=== PATIENT | female | born 1965 | race Caucasian/White ===

== ENCOUNTER 2018-10-14 07:03 | Inpatient (IN) | payer BC ==
--- NOTE | 2018-10-14 07:33 | ED ---
General Adult HPI - General Chief complaint: Arrhythmia/Palpitations Stated complaint: Heart Monit. Alert To Be Seen Time Seen by Provider: 10/14/18 07:10 Source: patient, RN notes reviewed Mode of arrival: ambulatory Limitations: no limitations - History of Present Illness Initial comments: This a 53-year-old female presents emergency Department because she had received a call that stated the monitor she was wearing show something she should go to the emergency department. Patient states she received a call at 3:00 in the morning and then 5:30 this morning. Patient states both times received a phone call she was sleeping. Patient denies any palpitations. Patient denies chest pain patient denies any difficulty breathing first breath per patient denies any recent fever chills or cough. Patient states she was originally put on the monitor because she had some palpitations and they tried to figure out why she is having palpitations. Patient states she states at her baseline currently and has no complaints and she has not had any sensation of palpitations since she's had the monitor. - Related Data Home Medications Medication Instructions Recorded Confirmed Cholecalciferol [Vitamin D3] 3,000 unit PO DAILY 10/14/18 10/14/18 Allergies Allergy/AdvReac Type Severity Reaction Status Date / Time No Known Allergies Allergy Verified 10/14/18 07:12 Review of Systems ROS Statement: Those systems with pertinent positive or pertinent negative responses have been documented in the HPI. ROS Other: All systems not noted in ROS Statement are negative. Past Medical History Past Medical History: No Reported History History of Any Multi-Drug Resistant Organisms: None Reported Past Surgical History: Tonsillectomy Additional Past Surgical History / Comment(s): laprascopy Past Psychological History: No Psychological Hx Reported Smoking Status: Never smoker Past Alcohol Use History: None Reported Past Drug Use History: None Reported General Exam - General Exam Comments Initial Comments: GENERAL: Patient is well-developed and well-nourished. Patient is nontoxic and well- hydrated and is in no acute distress. ENT: Neck is soft and supple. No significant lymphadenopathy is noted. Oropharynx is clear. Moist mucous membranes. Neck has full range of motion without eliciting any pain. EYES: The sclera were anicteric and conjunctiva were pink and moist. Extraocular movements were intact and pupils were equal round and reactive to light. Eyelids were unremarkable. PULMONARY: Unlabored respirations. Good breath sounds bilaterally. No audible rales rhonchi or wheezing was noted. CARDIOVASCULAR: There is a regular rate and rhythm without any murmurs gallops or rubs. ABDOMEN: Soft and nontender with normal bowel sounds. SKIN: Skin is clear with no lesions or rashes and otherwise unremarkable. NEUROLOGIC: Patient is alert and oriented x3. Cranial nerves II through XII are grossly intact. Motor and sensory are also intact. Normal speech, volume and content. Symmetrical smile. MUSCULOSKELETAL: Normal extremities with adequate strength and full range of motion. No lower extremity swelling or edema. No calf tenderness. LYMPHATICS: No significant lymphadenopathy is noted PSYCHIATRIC: Normal psychiatric evaluation. Limitations: no limitations Course Vital Signs 10/14/18 10/14/18 10/14/18 07:09 07:30 08:00 Temperature 98.2 F Pulse Rate 85 86 77 Respiratory 18 12 18 Rate Blood Pressure 146/85 135/100 155/105 O2 Sat by Pulse 100 98 98 Oximetry 10/14/18 09:00 Temperature Pulse Rate 80 Respiratory 20 Rate Blood Pressure 135/85 O2 Sat by Pulse 98 Oximetry Medical Decision Making - Medical Decision Making EKG shows normal sinus rhythm at 70 bpm WI interval is 132 QRS is 90 QT interval 356 QTC is 405. Patient's EKG shows no ST segment elevation or depression. We called the monitor company and they sent us a rhythm strip which showed the patient going into a sustained V. tach. Patient has not been in V. tach while in the emergency department. I spoke with Dr. Chang Downing agreed that we should admit the patient. I spoke with some physicians agreed to admit the patient wrote admitting orders. - Lab Data Result diagrams: 10/14/18 07:40 10/14/18 07:40 Lab Results 10/14/18 10/14/18 10/14/18 Range/Units 07:40 07:40 07:40 WBC 6.3 (3.8-10.6) k/uL RBC 4.94 (3.80-5.40) m/uL Hgb 14.0 (11.4-16.0) gm/dL Hct 43.0 (34.0-46.0) % MCV 87.1 (80.0-100.0) fL MCH 28.5 (25.0-35.0) pg MCHC 32.7 (31.0-37.0) g/dL RDW 13.6 (11.5-15.5) % Plt Count 156 (150-450) k/uL Neutrophils % 84 % Lymphocytes % 12 % Monocytes % 2 % Eosinophils % 0 % Basophils % 0 % Neutrophils # 5.3 (1.3-7.7) k/uL Lymphocytes # 0.7 L (1.0-4.8) k/uL Monocytes # 0.2 (0-1.0) k/uL Eosinophils # 0.0 (0-0.7) k/uL Basophils # 0.0 (0-0.2) k/uL PT 10.0 (9.0-12.0) sec INR 0.9 (<1.2) APTT 24.1 (22.0-30.0) sec Sodium 142 (137-145) mmol/L Potassium 4.3 (3.5-5.1) mmol/L Chloride 107 (98-107) mmol/L Carbon Dioxide 25 (22-30) mmol/L Anion Gap 10 mmol/L BUN 17 (7-17) mg/dL Creatinine 0.47 L (0.52-1.04) mg/dL Est GFR (CKD-EPI)AfAm >90 (>60 ml/min/1.73 sqM) Est GFR (CKD-EPI)NonAf >90 (>60 ml/min/1.73 sqM) Glucose 116 H (74-99) mg/dL Calcium 10.5 H (8.4-10.2) mg/dL Magnesium 2.0 (1.6-2.3) mg/dL Total Bilirubin 0.6 (0.2-1.3) mg/dL AST 37 H (14-36) U/L ALT 37 (9-52) U/L Alkaline Phosphatase 82 (38-126) U/L Troponin I (0.000-0.034) ng/mL Total Protein 8.0 (6.3-8.2) g/dL Albumin 5.0 (3.5-5.0) g/dL 10/14/18 Range/Units 07:40 WBC (3.8-10.6) k/uL RBC (3.80-5.40) m/uL Hgb (11.4-16.0) gm/dL Hct (34.0-46.0) % MCV (80.0-100.0) fL MCH (25.0-35.0) pg MCHC (31.0-37.0) g/dL RDW (11.5-15.5) % Plt Count (150-450) k/uL Neutrophils % % Lymphocytes % % Monocytes % % Eosinophils % % Basophils % % Neutrophils # (1.3-7.7) k/uL Lymphocytes # (1.0-4.8) k/uL Monocytes # (0-1.0) k/uL Eosinophils # (0-0.7) k/uL Basophils # (0-0.2) k/uL PT (9.0-12.0) sec INR (<1.2) APTT (22.0-30.0) sec Sodium (137-145) mmol/L Potassium (3.5-5.1) mmol/L Chloride (98-107) mmol/L Carbon Dioxide (22-30) mmol/L Anion Gap mmol/L BUN (7-17) mg/dL Creatinine (0.52-1.04) mg/dL Est GFR (CKD-EPI)AfAm (>60 ml/min/1.73 sqM) Est GFR (CKD-EPI)NonAf (>60 ml/min/1.73 sqM) Glucose (74-99) mg/dL Calcium (8.4-10.2) mg/dL Magnesium (1.6-2.3) mg/dL Total Bilirubin (0.2-1.3) mg/dL AST (14-36) U/L ALT (9-52) U/L Alkaline Phosphatase (38-126) U/L Troponin I <0.012 (0.000-0.034) ng/mL Total Protein (6.3-8.2) g/dL Albumin (3.5-5.0) g/dL Disposition Clinical Impression: Sustained ventricular tachycardia Disposition: ADMITTED IP TO THIS HOSP Referrals: None,Stated [Primary Care Provider] - 1-2 days Time of Disposition: 09:11
[2018-10-14 08:04] LABS: Basophils % (A) 0 %; Eosinophils % (A) 0 %; INR 0.9 (<1.2); Lymphocytes # (A) 0.7 k/uL (1.0-4.8); Lymphocytes % (A) 12 %; MCH 28.5 pg (25.0-35.0); MCHC 32.7 g/dL (31.0-37.0); MCV 87.1 fL (80.0-100.0); Mean Platelet Volume 8.9; Monocytes # (A) 0.2 k/uL (0-1.0); Monocytes % (A) 2 %; Neutrophils # (A) 5.3 k/uL (1.3-7.7); Neutrophils % (A) 84 %; Partial Thromboplastin Time 24.1 sec (22.0-30.0); Platelet Count 156 k/uL (150-450); RBC 4.94 m/uL (3.80-5.40); RDW 13.6 % (11.5-15.5); WBC 6.3 k/uL (3.8-10.6)
[2018-10-14 08:12] LABS: ALT 37 U/L (9-52); AST 37 U/L (14-36); Alkaline Phosphatase 82 U/L (38-126); Anion Gap 10 mmol/L; Blood Urea Nitrogen 17 mg/dL (7-17); Calcium 10.5 mg/dL (8.4-10.2); Carbon Dioxide 25 mmol/L (22-30); Chloride 107 mmol/L (98-107); Glucose 116 mg/dL (74-99); Potassium 4.3 mmol/L (3.5-5.1); Sodium 142 mmol/L (137-145); Total Bilirubin 0.6 mg/dL (0.2-1.3)
--- NOTE | 2018-10-14 09:00 | XR ---
EXAMINATION TYPE: XR chest 2V DATE OF EXAM: 10/14/2018 COMPARISON: 08/27/2010 TECHNIQUE: PA and lateral views submitted. HISTORY: Chest pain FINDINGS: Linear retrocardiac density noted on the left. No overt failure thorax. No pleural effusion. Hypertro phic and degenerative changes spine. IMPRESSION: 1. Left basilar atelectasis favored over infiltrate.
[2018-10-14] MEDS ORDERED: NITROGLYCERIN SL TABS 0.4 MG TAB SUBLINGUAL PRN (09:12)
[2018-10-14 09:38] LABS: T4, Free (Free Thyroxine) 1.32 ng/dL (0.78-2.19)
--- NOTE | 2018-10-14 10:25 | P.CRDCN ---
History of Present Illness Consult date: 10/14/18 Chief complaint: Palpitation History of present illness: This is a pleasant 53-year-old female patient who I follow in the office as an outpatient with no significant past medical history was asked to present to the emergency room because of abnormal findings on event monitor she has been waiting for the last 3 weeks. The patient was seen in the office about 3 weeks ago for further evaluation of an episode of palpitation. She was in her usual state of health until about a week before she was seen in the office where she was sitting at home and suddenly she developed an episode of heart racing without any dizziness or lightheadedness or syncope. She didn't have any symptoms of chest pain or chest discomfort. She did not have any further episode of heart racing beside that first one. I that point, I did advise the patient to wear an event monitor and also obtain an echocardiogram was Doppler. This time, she was waiting the event monitor and at 2:00 after midnight, the patient was called by the event monitor company to go to the emergency room because she did have a 25 beats of wide complex tachycardia represents ventricular tachycardia with differential diagnosis of SVT with aberrancy. The patient was completely asymptomatic. As a matter of fact through the time she was wearing the event monitor she did not have any episode of heart racing or fluttering, dizziness, chest pain or chest discomfort, or shortness of breath. She is in process to be ruled out for acute coronary event. The blood work overall came in to be unremarkable including Electrolytes and including her TSH and free T4. Please note that the patient does have very significant family history of coronary artery disease with her mother. Past Medical History Past Medical History: No Reported History Additional Past Medical History / Comment(s): 2 years ago (2017) pt states she had chest fluttering and had cardiac workup-nothing found, lately L bicep pain up into shoulder-worse with certain positions, stress incontinence. History of Any Multi-Drug Resistant Organisms: None Reported Past Surgical History: Tonsillectomy Additional Past Surgical History / Comment(s): laprascopic surgery for e ndometriosis. Past Anesthesia/Blood Transfusion Reactions: No Reported Reaction Past Psychological History: No Psychological Hx Reported Additional Psychological History / Comment(s): Pt resides with her spouse. She is independent. Smoking Status: Never smoker Past Alcohol Use History: None Reported Past Drug Use History: None Reported - Past Family History Mother Family Medical History: Coronary Artery Disease (CAD) Additional Family Medical History / Comment(s): Mother had 2 vessel CABG at the age of 63 yrs. She also had PCI/stent at the age of 76yrs. Pt's maternal aunt had CABG and her 2 maternal uncles had CVA and HTN elevated cholesterol. Father History Unknown: Yes Additional Family Medical History / Comment(s): Father in a plane accident. Medications and Allergies Home Medications Medication Instructions Recorded Confirmed Type Cholecalciferol [Vitamin D3] 3,000 unit PO DAILY 10/14/18 10/14/18 History Allergies Allergy/AdvReac Type Severity Reaction Status Date / Time No Known Allergies Allergy Verified 10/14/18 07:12 Physical Exam Vitals: Vital Signs Temp Pulse Resp BP Pulse Ox 10/14/18 10:07 98.8 F 105 H 18 134/83 98 10/14/18 09:00 80 20 135/85 98 10/14/18 08:00 77 18 155/105 98 10/14/18 07:30 86 12 135/100 98 10/14/18 07:09 98.2 F 85 18 146/85 100 Intake and Output 10/13/18 10/14/18 10/14/18 22:59 06:59 14:59 Other: Weight 70.76 kg - Constitutional General appearance: no acute distress - Respiratory Respiratory: bilateral: CTA - Cardiovascular Rhythm: regular Heart sounds: normal: S1, S2 Results 10/14/18 07:40 10/14/18 07:40 Cardiac Enzymes 10/14/18 10/14/18 Range/Units 07:40 07:40 AST 37 H (14-36) U/L Troponin I <0.012 (0.000-0.034) ng/mL Coagulation 10/14/18 Range/Units 07:40 PT 10.0 (9.0-12.0) sec APTT 24.1 (22.0-30.0) sec CBC 10/14/18 Range/Units 07:40 WBC 6.3 (3.8-10.6) k/uL RBC 4.94 (3.80-5.40) m/uL Hgb 14.0 (11.4-16.0) gm/dL Hct 43.0 (34.0-46.0) % Plt Count 156 (150-450) k/uL Comprehensive Metabolic Panel 10/14/18 Range/Units 07:40 Sodium 142 (137-145) mmol/L Potassium 4.3 (3.5-5.1) mmol/L Chloride 107 (98-107) mmol/L Carbon Dioxide 25 (22-30) mmol/L BUN 17 (7-17) mg/dL Creatinine 0.47 L (0.52-1.04) mg/dL Glucose 116 H (74-99) mg/dL Calcium 10.5 H (8.4-10.2) mg/dL AST 37 H (14-36) U/L ALT 37 (9-52) U/L Alkaline Phosphatase 82 (38-126) U/L Total Protein 8.0 (6.3-8.2) g/dL Albumin 5.0 (3.5-5.0) g/dL Current Medications Generic Name Dose Route Start Last Admin Trade Name Freq PRN Reason Stop Dose Admin Aspirin 325 mg 10/15/18 09:00 Aspirin PO DAILY LEXIE Metoprolol Tartrate 25 mg 10/14/18 21:00 Lopressor PO BID LEXIE Nitroglycerin 0.4 mg 10/14/18 09:12 Nitrostat SUBLINGUAL Q5M PRN Chest Pain Intake and Output 10/13/18 10/14/18 10/14/18 22:59 06:59 14:59 Other: Weight 70.76 kg Patient Weight 10/15/18 06:59 Weight 70.76 kg 10/14/18 07:40 10/14/18 07:40 Assessment and Plan Assessment: Assessment #1 cardiac arrhythmia in the term of nonsustained V. tach with differential diagnosis of SVT with appearance he, including atrial flutter #2 significant family history of coronary artery disease Plan #1 start the patient on beta kassie with metoprolol #2 obtain an echocardiogram was Doppler #3 severe CAD to be ruled out #4 follow-up with the patient Thank you for allowing us participate in her care
[2018-10-14] MEDS: ASPIRIN 325 MG TAB PO SCH (10:48)
[2018-10-14] MEDS ORDERED: VERAPAMIL 2.5 MG/ML 2 ML AMP ONE (11:22)
[2018-10-14] MEDS ORDERED: LIDOCAINE 1% INJ 10MG/ML (20 ML MDV) ONE (11:22)
[2018-10-14] MEDS ORDERED: fentaNYL (PF) 50 MCG/ML 2 ML AMP ONE (11:37)
[2018-10-14] MEDS ORDERED: MIDAZOLAM (PF) 2 MG/2 ML VIAL IVP ONE ×2 (11:37→11:39)
[2018-10-14] MEDS ORDERED: LIDOCAINE 1% INJ 10MG/ML (20 ML MDV) SQ ONE (11:39)
[2018-10-14] MEDS ORDERED: fentaNYL (PF) 50 MCG/ML 2 ML AMP IVP ONE (11:39)
[2018-10-14] MEDS ORDERED: VERAPAMIL SYRINGE (5 MG/10 ML) IV ONE (11:43)
[2018-10-14] MEDS ORDERED: HEPARIN SODIUM 1,000 UN/ML (10ML VL) IV ONE (11:44)
[2018-10-14] MEDS ORDERED: IV FLUID CONTINUATION 1,000 ML IV ONE (11:45)
[2018-10-14] MEDS ORDERED: IOPAMIDOL-370 125ML BTL INJ ONE (11:49)
[2018-10-14] MEDS ORDERED: RX INFO: IV CONTRAST WAS GIVEN 1 EACH MISC MISCELLANE PRN (11:52)
[2018-10-14] MEDS ORDERED: SODIUM CHLORIDE 0.9% 1,000 ML IV SCH (12:00)
--- NOTE | 2018-10-14 12:14 | CC ---
CARDIAC CATHETERIZATION REPORT DATE OF SERVICE: 10/14/2018. PERFORMING PHYSICIAN: Peter Downing MD, [employer] PROCEDURE PERFORMED: 1. Selective right and left coronary angiogram. 2. Left heart catheterization. INDICATION: This is a pleasant 53-year-old female patient who presented to the hospital with heart racing and she was found to be in V tach. She was converted to normal sinus mechanism. COMPLICATION: None. LEVEL OF SEDATION: Moderate with sedation length of 12 minutes. PROCEDURE DESCRIPTION: After obtaining an informed consent, the patient was brought to cardiac laboratory animal facility supervisor. The right radial artery was cannulated using micropuncture technique and a micropuncture wire passed easily. Then I placed a 6-Sammarinese sheath in the right radial artery. After that, I gave the patient 2 mg of verapamil IA and 7,000 units of heparin IV. I did selective right and left coronary angiogram with the JR4 and JL3.5 catheters. Left heart catheterization was performed using 5-Sammarinese pigtail catheter. The procedure was completed without any complication. SELECTIVE CORONARY ANGIOGRAM: 1. The right coronary artery is a large caliber vessel and it is a dominant vessel and appears to be angiographically normal. 2. The left main is angiographically normal. It bifurcates into the circumflex and left anterior descending artery. 3. Left circumflex is a large caliber vessel. It is a nondominant vessel. The left circumflex is angiographically normal. It gives rise into first and second obtuse marginal branches, both appeared to be angiographically normal. 4. The LAD, the proximal LAD is normal and gives rise into a large diagonal branch which seems to be normal. The mid and distal LAD are normal. HEMODYNAMICS: The left ventricular end diastolic pressure was 10 mmHg without gradient across the aortic valve. CONCLUSION: 1. Normal coronary angiogram. 2. Normal left ventricular end-diastolic pressure. POSTPROCEDURE MANAGEMENT: 1. Consult Dr. Kay for EP study and possible ablation. 2. Follow up with the patient. MMODL / IJN: [id number] /
[2018-10-14] MEDS ORDERED: ALPRAZolam 0.25 MG TAB PO PRN (12:47)
--- NOTE | 2018-10-14 12:48 | P.HPIM ---
History of Present Illness H&P Date: 10/14/18 Chief Complaint: palpitations 53-year-old female with PMH of anxiety presents to the ED after she received a call stating that the compliance monitor was showing abnormal rhythm function and was told to come to the ED for evaluation. event monitor showed 25 beats of wide-complex tachycardia, ventricular tachycardia or SVT with aberrancy. Patient states that she was sleeping at this time and had no complaints. Of note, patient reports being evaluated by cardiology 6 weeks prior for an episode of palpitations that started while watching TV and resolved on its own. Patient reports suffering from cardiac flutter 2 years ago and no cause was found after evaluation. Patient also reports undergoing echocardiogram at the cardiology clinic. Patient states that she is an anxious person. She denies any caffeine or alcohol intake. She denies any smoking or illicit drug u se.patient denies any headache, dizziness, lower extremity edema, nausea, vomiting, fever, chills, cough, chest pain, shortness of breath, palpitations, changes in urination or bowel habits. She denies any numbness/weakness/tingling of the extremities. In the ED, CBC and PT/INR panel was negative. CMP showed a glucose of 116 and calcium of 10.5. Troponin was less than 0.012 with EKG showing normal sinus rhythm with sinus arrhythmia. Chest x-ray shows left basilar atelectasis. Review of Systems General: [no fever/chills], [no rigors], [no weight loss/weight gain], [no unusual fatigue] Eyes: [no noticeable visual changes], [no loss of vision] ENT: [no rhinorrhea], [no congestion], [no sore throat] Cardiovascular: [no chest pain], [no palpitations], [no preyncope/syncope], [no edema] Pulmonary: [no shortness of breath], [no wheezing], [no cough] Abdominal: [no abdominal pain], [no constipation], [no diarrhea], [no vomiting], [no nausea] Genitourinary: [no dysuria], [no urinary frequency], [no unusual discharge/odor] Neuro: [no unusual paresthesias], [no unusual paresis/paralysis], [no headache] Dermatologic: [no unusual rashes], [no unusual lesions], [no unusual changes in nails] Hematologic: [no hemoptysis], [no hematuria], [no melena/hematochezia] Psychiatric: [no changes in mood or behaviors], [no changes in sleep pattern] Past Medical History Past Medical History: No Reported History Additional Past Medical History / Comment(s): 2 years ago (2017) pt states she had chest fluttering and had cardiac workup-nothing found, lately L bicep pain up into shoulder-worse with certain positions, stress incontinence. History of Any Multi-Drug Resistant Organisms: None Reported Past Surgical History: Tonsillectomy Additional Past Surgical History / Comment(s): laprascopic surgery for endometriosis. Past Anesthesia/Blood Transfusion Reactions: No Reported Reaction Past Psychological History: No Psychological Hx Reported Additional Psychological History / Comment(s): Pt resides with her spouse. She is independent. Smoking Status: Never smoker Past Alcohol Use History: None Reported Past Drug Use History: None Reported - Past Family History Mother Family Medical History: Coronary Artery Disease (CAD) Additional Family Medical History / Comment(s): Mother had 2 vessel CABG at the age of 63 yrs. She also had PCI/stent at the age of 76yrs. Pt's maternal aunt had CABG and her 2 maternal uncles had CVA and HTN elevated cholesterol. Father History Unknown: Yes Additional Family Medical History / Comment(s): Father in a plane accident. Medications and Allergies Home Medications Medication Instructions Recorded Confirmed Type Cholecalciferol [Vitamin D3] 3,000 unit PO DAILY 10/14/18 10/14/18 History Allergies Allergy/AdvReac Type Severity Reaction Status Date / Time No Known Allergies Allergy Verified 10/14/18 07:12 Physical Exam Vitals: Vital Signs Temp Pulse Pulse Resp BP BP Pulse Ox 10/14/18 12:22 85 18 121/71 98 10/14/18 12:07 98.4 F 74 18 118/83 99 10/14/18 11:46 98.4 F 76 18 160/87 96 10/14/18 10:07 98.8 F 105 H 18 134/83 98 10/14/18 09:00 80 20 135/85 98 10/14/18 08:00 77 18 155/105 98 10/14/18 07:30 86 12 135/100 98 10/14/18 07:09 98.2 F 85 18 146/85 100 Intake and Output 10/13/18 10/14/18 10/14/18 22:59 06:59 14:59 Intake Total 100 Balance 100 Intake: IV 100 Other: Weight 71.2 kg General: [non toxic], [no distress], [appears at stated age] Derm: [warm], [dry] Head: [atraumatic], [normocephalic], [symmetric] Eyes: [EOMI], [no lid lag], [anicteric sclera] Mouth: [no lip lesion], [mucus membranes moist] Cardiovascular: [S1S2 reg], [no murmur], [positive posterior tibial pulse bilateral], Lungs: [CTA bilateral], [no rhonchi, no rales] , [no accessory muscle use] Abdominal: [soft], [ nontender to palpation], [no guarding], [no appreciable organomegaly] Ext: [no gross muscle atrophy], [no edema], [no contractures] Neuro: [ CN II-XI grossly intact], [no focal neuro deficits] Psych: [Alert], [oriented], [appropriate affect] Results CBC & Chem 7: 10/14/18 07:40 10/14/18 07:40 Labs: Abnormal Lab Results - Last 24 Hours (Table) 10/14/18 10/14/18 Range/Units 07:40 07:40 Lymphocytes # 0.7 L (1.0-4.8) k/uL Creatinine 0.47 L (0.52-1.04) mg/dL Glucose 116 H (74-99) mg/dL Calcium 10.5 H (8.4-10.2) mg/dL AST 37 H (14-36) U/L Thrombosis Risk Factor Assmnt - Choose All That Apply Any of the Below Risk Factors Present?: Yes Each Factor Represents 1 point: Age 41-60 years Other Risk Factors: No Other congenital or acquired thrombophilia - If yes, enter type in comment: No Thrombosis Risk Factor Assessment Total Risk Factor Score: 1 Thrombosis Risk Factor Assessment Level: Low Risk Assessment and Plan Assessment: Assessment and Plan Abnormal event monitor with history of palpitations Anxiety Elevated AST Event monitor showing 25 beats of wide-complex tachycardia, ventricular tachy cardia versus SVT with aberrancy. Troponin less than 0.012, with EKG showing normal sinus rhythm. Cardiac catheterization within normal limits. TSH and free T4 is within normal limits. Magnesium and potassium is within normal limits. Plan: Follow echocardiogram. Follow electrophysiology consultation. Continue metoprolol and aspirin. Telemetry monitoring. Xanax as needed. AST 37. Possibly secondary to fatty liver. Follow lipid panel. DVT prophylaxis: [SCD boots] Discussed with: [Patient and family] Anticipated discharge: [1-2 days] Anticipated discharge place: [home] A total of [30] minutes was spent on the care of this complex patient more than 50% of the time was spent in counseling and care coordination. Patient states that she would like to make her Niranjan decision-maker in the case that she can make decisions for himself. Patient reiterates that she would like to remain full code.
[2018-10-14] MEDS: METOPROLOL TARTRATE 25 MG TAB PO SCH (19:15)
[2018-10-15 00:40] LABS: Cholesterol 140 mg/dL (<200); HDL Cholesterol 57 mg/dL (40-60); LDL Cholesterol,Calculated 70 mg/dL (0-99); Triglycerides 65 mg/dL (<150)
[2018-10-15] MEDS ORDERED: ASPIRIN 325 MG TAB PO SCH (09:00)
[2018-10-15] MEDS: METOPROLOL TARTRATE 25 MG TAB PO SCH ×2 (09:04→18:27)
[2018-10-15] MEDS: ASPIRIN 325 MG TAB PO SCH (09:05)
--- NOTE | 2018-10-15 11:18 | P.PN ---
Subjective Progress Note Date: 10/15/18 Principal diagnosis: Palpitations Patient was seen and examined. No acute events overnight. Patient reports one episode of palpitations yesterday. No reports of telemetry events. Patient denies any chest pain, shortness of breath or palpitations at this time. No nausea or vomiting. No fever or chills. Objective - Vital Signs Vital signs: Vital Signs Temp 98.3 F 10/15/18 08:00 Pulse 69 10/15/18 08:00 Resp 18 10/15/18 08:00 BP 110/71 10/15/18 08:00 Pulse Ox 99 10/15/18 09:12 Intake & Output 10/14/18 10/15/18 10/15/18 18:59 06:59 18:59 Intake Total 460 600 240 Balance 460 600 240 Weight 71.2 kg 70.2 kg Intake: IV 100 Intake, IV Titration 600 Amount Sodium Chloride 0.9% 1, 600 000 ml @ 75 mls/hr IV . [id number] LEXIE Rx#:[id number] Oral 360 240 Other: Voiding Method Toilet # Voids 0 1 - Exam General: [non toxic], [no distress], [appears at stated age] Derm: [warm], [dry] Head: [atraumatic], [normocephalic], [symmetric] Eyes: [EOMI], [no lid lag], [anicteric sclera] Mouth: [no lip lesion], [mucus membranes moist] Cardiovascular: [S1S2 reg], [no murmur], [positive posterior tibial pulse bilateral], Lungs: [CTA bilateral], [no rhonchi, no rales] , [no accessory muscle use] Abdominal: [soft], [ nontender to palpation], [no guarding], [no appreciable organomegaly] Ext: [no gross muscle atrophy], [no edema], [no contractures] Neuro: [ CN II-XI grossly intact], [no focal neuro deficits] Psych: [Alert], [oriented], [appropriate affect] - Labs CBC & Chem 7: 10/14/18 07:40 10/14/18 07:40 Assessment and Plan Assessment: Assessment and Plan Abnormal event monitor with history of palpitations Anxiety Elevated AST Event monitor showing 25 beats of wide-complex tachycardia, ventricular tachycardia versus SVT with aberrancy. Troponin less than 0.012, with EKG showing normal sinus rhythm. Cardiac catheterization within normal limits. TSH and free T4 is within normal limits. Magnesium and potassium is within normal limits. Plan: Follow echocardiogram. Follow electrophysiology consultation. Continue metoprolol and aspirin. Telemetry monitoring. Xanax as needed. AST 37. Possibly secondary to fatty liver. Lipid panel within normal limits. Pending electrophysiology consultation.
--- NOTE | 2018-10-15 15:15 | P.PN ---
Subjective Progress Note Date: 10/15/18 This is a 53-year-old female who was seen in consultation by Dr. Schwartz, he also follows with her in the office. She had been in the office approximately 3 weeks ago for evaluation of an episode of palpitations. She was advised to wear a monitor in the office, at 2:00 in the morning it was noted that the patient had a 25 run of a wide complex tachycardia and was advised to come to the emergency room. Dr. Schwartz did perform a cardiac catheterization that did not reveal any significant obstructive coronary artery disease. Consultation was requested with Dr. Kay who seen and evaluated the patient today. She is currently on beta kassie, she'll be scheduled tomorrow to undergo a regular stress test. Overall today she feels well, denies any palpitations, no chest discomfort. Breathing is stable. She had 1 run of a sinus tachycardia around 7 PM last evening but other than that no arrhythmias. Objective - Vital Signs Vital signs: Vital Signs Temp 98.1 F 10/15/18 12:00 Pulse 64 10/15/18 12:00 Resp 18 10/15/18 12:00 BP 138/84 10/15/18 12:00 Pulse Ox 96 10/15/18 12:00 Intake & Output 10/14/18 10/15/18 10/15/18 18:59 06:59 18:59 Intake Total 460 600 480 Output Total 400 Balance 460 600 80 Weight 71.2 kg 70.2 kg Intake: IV 100 Intake, IV Titration 600 Amount Sodium Chloride 0.9% 1, 600 000 ml @ 75 mls/hr IV . [id number] [facility] Rx#:[id number] Oral 360 480 Output: Urine 400 Other: Voiding Method Toilet # Voids 0 1 - Exam PHYSICAL EXAMINATION: GENERAL: 53-year-old female in no acute distress at the time of my examination HEENT: Head is atraumatic, normocephalic. Pupils equal, round. Sclera anicteric. Conjunctiva are clear. Mucous membranes of the mouth are moist. Neck is supple. There is no elevated jugular venous pressure. No carotid bruit is heard. HEART EXAMINATION: Heart S1, S2 normal. No murmur or gallop heard. CHEST EXAMINATION: Lungs are clear to auscultation and precussion. No chest wall tenderness is noted on palpation or with deep breathing. ABDOMEN: Soft, nontender. Bowel sounds are heard. No organomegaly noted. EXTREMITIES: 2+ peripheral pulses with no evidence of peripheral edema and no calf tenderness noted. Right radial site clean and dry, good distal pulse. NEUROLOGIC patient is awake, alert and oriented 3. . - Labs CBC & Chem 7: 10/14/18 07:40 10/14/18 07:40 Assessment and Plan Plan: Assessment and plan #1 nonsustained ventricular tachycardia status post cardiac catheterization which did not reveal any significant obstructive coronary artery disease. #2 family history of premature coronary artery disease Plan We will continue current dose of beta kassie, make sure the patient receives her beta kassie at 6 AM tomorrow morning, regular stress test will be performed tomorrow and further recommendations then will be made. DNP note has been reviewed, I agree with a documented findings and plan of care. Patient was seen and examined.
[2018-10-16] MEDS: METOPROLOL TARTRATE 25 MG TAB PO SCH (05:28)
--- NOTE | 2018-10-16 08:48 | P.PN ---
Subjective Progress Note Date: 10/16/18 Principal diagnosis: Arrhythmia Patient was seen and examined. No acute events overnight. Patient denies any palpitations overnight. One episode of sinus tachycardia on telemetry. She denies any chest pain, shortness of breath or dizziness. Objective - Vital Signs Vital signs: Vital Signs Temp 97.9 F 10/16/18 04:00 Pulse 59 L 10/16/18 04:00 Resp 16 10/16/18 04:00 BP 127/76 10/16/18 04:00 Pulse Ox 98 10/16/18 04:00 Intake & Output 10/15/18 10/16/18 10/16/18 18:59 06:59 18:59 Intake Total 720 300 Output Total 400 Balance 320 300 Weight 70 kg Intake: Oral 720 300 Output: Urine 400 Other: Voiding Method Toilet # Voids 1 - Exam General: [non toxic], [no distress], [appears at stated age] Derm: [warm], [dry] Head: [atraumatic], [normocephalic], [symmetric] Eyes: [EOMI], [no lid lag], [anicteric sclera] Mouth: [no lip lesion], [mucus membranes moist] Cardiovascular: [S1S2 reg], [no murmur], [positive DP pulse bilateral], Lungs: [CTA bilateral], [no rhonchi, no rales] , [no accessory muscle use] Abdominal: [soft], [ nontender to palpation], [no guarding], [no appreciable organomegaly] Ext: [no gross muscle atrophy], [no edema], [no contractures] Neuro: [no focal neuro deficits] Psych: [Alert], [oriented], [appropriate affect] - Labs CBC & Chem 7: 10/14/18 07:40 10/14/18 07:40 Assessment and Plan Assessment: Assessment and Plan Abnormal event monitor with history of palpitations Anxiety Elevated AST Event monitor showing 25 beats of wide-complex tachycardia, ventricular tachycardia versus SVT with aberrancy. Troponin less than 0.012, 0.017, < 0.012, with EKG showing normal sinus rhythm. Cardiac catheterization within normal limits. TSH and free T4 is within normal limits. Magnesium and potassium is within normal limits. Plan: Plans for stress test. Follow electrophysiology consultation. Continue metoprolol and aspirin. Telemetry monitoring. Xanax as needed. AST 37. Possibly secondary to fatty liver. Lipid panel within normal limits. Pending electrophysiology consultation. Plans for stress test today.
[2018-10-16 09:01] VITALS: BP 124/76; RESP 20
--- NOTE | 2018-10-16 09:30 | P.CRDCN ---
History of Present Illness Consult date: 10/15/18 History of present illness: This is Dr. Kay dictating a consult on this patient The patient was interviewed and examined by me IMPRESSION / ASSESSMENT: History of palpitations Documented wide complex tachycardia consistent with ventricular tachycardia along with nonsustained at night when she was sleeping VT was not preceded by a pause No history of syncope No family history of sudden cardiac or premature PLAN: Metoprolol 25 mg twice daily Exercise stress test on metoprolol and maximum capacity to look for any x-rays induced arrhythmias If this is normal she may go home and I will schedule her for advanced imaging of her heart and thereafter see her as an outpatient and discussed in EP study and efficacy ablation I did briefly talk to her about an EP study and ablation but we'll discuss this further In the interim we will also see response to metoprolol DC aspirin HPI History of palpitations several years back but no documented arrhythmias at that time About 6 weeks back she had an episode of palpitations and saw Dr. Schwartz once again. An event monitor was prescribed Event monitor showed an episode of wide complex tachycardia consistent with ventricular tachycardia. Patient was sleeping at that time and was woken up by the event monitor telemetry service No history of syncope other than mentioned the cc blood No history of driving accidents drowning accidents or seizures No family history of sudden cardiac , seizures, recurrent syncope She does complete palpitations off and on and she had an episode of palpitations in the hospital but this was sinus tachycardia not ventricular tachycardia No chest discomfort Denies use of any stimulants, minimal caffeine use ROS: No fever chills or rigors, no cough, phlegm or expectoration, no nausea, vomiting or diarrhea, no hematuria, dysuria, no musculoskeletal complaints, no strokes or seizures, no skin lesions. EXAMINATION: Pulse rate in the 50s and 60s, afebrile 98.1F, normal respirations Blood pressure 127/76. His mercury Breath sounds are clear no rhonchi no crackles Heart sounds S1 and S2 are normal no murmurs or gallops or rub Abdomen soft Extremities warm no edema REVIEW OF LABS, ECG & MEDICAL DATA Possible lead the retrocardiac density on the left side on chest x-ray Twelve-lead ECG shows sinus rhythm normal DE narrow QRS occasional PVC normal ST segments no delta waves no epsilon waves normal ST segments in V1 through V3, normal QT interval Coronary angiography revealed normal coronary arteries and normal left ventricular end-diastolic pressures Hemoglobin 14, sodium 142 potassium 4.3, BUN 17, creatinine 0.47 TSH normal at 0.1 Past Medical History Past Medical History: No Reported History Additional Past Medical History / Comment(s): 2 years ago (2016) pt states she had chest fluttering and had cardiac workup-nothing found, lately L bicep pain up into shoulder-worse with certain positions, stress incontinence. History of Any Multi-Drug Resistant Organisms: None Reported Past Surgical History: Tonsillectomy Additional Past Surgical History / Comment(s): laprascopic surgery for endometriosis. Past Anesthesia/Blood Transfusion Reactions: No Reported Reaction Past Psychological History: No Psychological Hx Reported Additional Psychological History / Comment(s): Pt resides with her spouse. She is independent. Smoking Status: Never smoker Past Alcohol Use History: None Reported Past Drug Use History: None Reported - Past Family History Mother Family Medical History: Coronary Artery Disease (CAD) Additional Family Medical History / Comment(s): Mother had 2 vessel CABG at the age of 63 yrs. She also had PCI/stent at the age of 76yrs. Pt's maternal aunt had CABG and her 2 maternal uncles had CVA and HTN elevated cholesterol. Father History Unknown: Yes Additional Family Medical History / Comment(s): Father in a plane accident. Medications and Allergies Home Medications Medication Instructions Recorded Confirmed Type Cholecalciferol [Vitamin D3] 3,000 unit PO DAILY 10/14/18 10/14/18 History Allergies Allergy/AdvReac Type Severity Reaction Status Date / Time No Known Allergies Allergy Verified 10/14/18 07:12 Physical Exam Vitals: Vital Signs Temp Pulse Resp BP Pulse Ox 10/16/18 08:00 98.1 F 62 20 124/76 99 10/16/18 04:00 97.9 F 59 L 16 127/76 98 10/16/18 00:00 98.0 F 59 L 16 105/67 97 10/15/18 20:00 60 18 10/15/18 19:37 98.2 F 60 18 115/77 98 10/15/18 16:00 98.1 F 64 18 113/74 96 10/15/18 12:00 98.1 F 64 18 138/84 96 Intake and Output 10/15/18 10/16/18 10/16/18 22:59 06:59 14:59 Intake Total 240 300 Balance 240 300 Intake: Oral 240 300 Other: Voiding Method Toilet Toilet # Voids 1 1 Weight 70 kg Results 10/14/18 07:40 10/14/18 07:40 Current Medications Generic Name Dose Route Start Last Admin Trade Name Freq PRN Reason Stop Dose Admin Alprazolam 0.25 mg 10/14/18 12:47 10/14/18 19:15 Xanax PO 0.25 mg BID PRN Administration Anxiety Metoprolol Tartrate 25 mg 10/15/18 18:00 10/16/18 05:28 Lopressor PO 25 mg BID@0600,1800 LEXIE Administration Miscellaneous Information 1 each 10/14/18 11:52 Rx Info: Iv Contrast Was Given MISCELLANE 10/16/18 11:52 DAILY PRN Per Protocol Intake and Output 10/15/18 10/16/18 10/16/18 22:59 06:59 14:59 Intake Total 240 300 Balance 240 300 Intake: Oral 240 300 Other: Voiding Method Toilet Toilet # Voids 1 1 Weight 70 kg 10/14/18 07:40 10/14/18 07:40
[2018-10-16 11:28] VITALS: PULSE 77; TEMP 98.5
--- NOTE | 2018-10-16 11:33 | EST ---
EXERCISE STRESS AGE: 54 SEX: F HT: 67" WT: 154 PROTOCOL: Peterson Stress Test STAGE: IV DURATION OF EXERCISE: 12:01 HEART RATE REST: 95 BLOOD PRESSURE REST: 117/82 MAXIMUM HEART RATE ACHIEVED: 182 MAXIMUM BLOOD PRESSURE: 158/75 85% MPHR: 142 100% MPHR: 167 METS: 12.3 INDICATIONS: Abnormal monitoring specialist. CLINICAL INFORMATION: Vielka Murrell was admitted for a long episode of nonsustained ventricular tachycardia. She was started on beta blockers, metoprolol 25 mg twice daily. Coronary arteries are normal. Echo showed normal LV size and function. No obvious structural abnormalities. She was brought in for a stress test to assess efficacy of beta kassie therapy as well as look for any exercise-induced ventricular tachycardia. Baseline heart rate 95 beats per minute. Baseline blood pressure 117/82 mmHg. Baseline 12-lead ECG shows normal sinus rhythm. With a 0.5-[address] depression inferolaterally. Patient exercised on a Peterson protocol for about 12 minutes achieving a peak heart rate of 182 beats per minute. Normal blood pressure response to exercise. There was no ECG evidence for ischemia. No arrhythmias were noted. No ventricular tachycardia noted at recovery. No arrhythmias noted. IMPRESSION: Excellent exercise capacity. No exercise-induced arrhythmias noted on the stress testing on metoprolol 25 mg twice daily. PLAN: Continue event monitoring to look for any spontaneous breakthrough arrhythmias on metoprolol. MMODL / IJN: [id number] /
--- NOTE | 2018-10-16 16:28 | P.PN ---
Subjective Progress Note Date: 10/16/18 Principal diagnosis: Nonsustained ventricular tachycardia This is a pleasant 53-year-old female patient who was admitted to the hospital after she was found to have an abnormal event monitor showing nonsustained ventricular tachycardia. Subsequently the patient wasn't started on metoprolol. She was seen and evaluated by Dr. Kay who agreed about the metoprolol and also advised exercising the patient on the treadmill be the patient did have an excellent exercise tolerance without any arrhythmia. From the cardiovascular standpoint of view, she is going to be discharged home and she is going to have a cardiac MR. She is going to continue wearing the event monitor and continue taking metoprolol. Objective - Vital Signs Vital signs: Vital Signs Temp 98.5 F 10/16/18 11:28 Pulse 77 10/16/18 11:28 Resp 20 10/16/18 11:28 BP 124/76 10/16/18 11:28 Pulse Ox 99 10/16/18 11:28 Intake & Output 10/15/18 10/16/18 10/16/18 18:59 06:59 18:59 Intake Total 720 300 Output Total 400 Balance 320 300 Weight 70 kg Intake: Oral 720 300 Output: Urine 400 Other: Voiding Method Toilet # Voids 1 - Constitutional General appearance: Present: no acute distress - Labs CBC & Chem 7: 10/14/18 07:40 10/14/18 07:40 Assessment and Plan Assessment: Assessment #1 cardiac arrhythmia in the term of nonsustained V. tach with differential diagnosis of SVT with appearance he, including atrial flutter #2 significant family history of coronary artery disease Plan #1 continue metoprolol #2 discharge home later on today
--- NOTE | 2018-10-20 12:36 | P.DS ---
Providers Date of admission: 10/14/18 09:12 Expected date of discharge: 10/16/18 Attending physician: Sharon Blanchard MD Consults: 10/14/18 09:12 Consult Physician Urgent Consulting Provider: [facility] Consult Reason/Comments: Sustained V. tach Do you want consulting provider notified?: Yes 10/14/18 11:53 Consult Physician Routine Consulting Provider: Tor Kya Consult Reason/Comments: V. Tach Do you want consulting provider notified?: Yes, Notify in am Primary care physician: Stated None Hospital Course: 53-year-old female with PMH of anxiety presents to the ED after she received a call stating that the transmitter tester was showing abnormal rhythm function and was told to come to the ED for evaluation. event monitor showed 25 beats of wide-complex tachycardia, ventricular tachycardia or SVT with aberrancy. Patient states that she was sleeping at this time and had no complaints. Of note, patient reports being evaluated by cardiology 6 weeks prior for an episode of palpitations that started while watching TV and resolved on its own. Patient reports suffering from cardiac flutter 2 years ago and no cause was found after evaluation. Patient also reports undergoing echocardiogram at the cardiology clinic. Patient states that she is an anxious person. She denies any caffeine or alcohol intake. She denies any smoking or illicit drug use.patient denies any headache, dizziness, lower extremity edema, nausea, vomiting, fever, chills, cough, chest pain, shortness of breath, palpitations, changes in urination or bowel habits. She denies any numbness/weakness/tingling of the extremities. In the ED, CBC and PT/INR panel was negative. CMP showed a glucose of 116 and calcium of 10.5. Troponin was less than 0.012 with EKG showing normal sinus rhythm with sinus arrhythmia. Chest x-ray shows left basilar atelectasis. Event monitor showed 25 beats of wide-complex tachycardia, ventricular tachycardia versus SVT with aberrancy. Troponin was less than 0.012, 0.017, less than 0.012 with EKG showing normal sinus rhythm. Cardiac catheterization was within normal limits. TSH H and free T4 was within normal limits. [facility] physiology was consulted and recommended a stress test. Stress test was performed and was within normal limits. She was continued on metoprolol and aspirin. Patient was cleared for discharge at this time from cardiology perspective to follow-up in the outpatient setting. Assessment and Plan Abnormal event monitor with history of palpitations Anxiety Elevated AST Pertinent Studies: Stress test, cardiac catheterization, chest x-ray Patient Condition at Discharge: Stable Plan - Discharge Summary Discharge Rx Participant: No New Discharge Prescriptions: New Metoprolol Tartrate [Lopressor] 25 mg PO BID@0600,1800 #60 tab Continue Cholecalciferol [Vitamin D3 (25 Mcg = 1000 Iu)] 3,000 unit PO DAILY Discharge Medication List Cholecalciferol [Vitamin D3 (25 Mcg = 1000 Iu)] 3,000 unit PO DAILY 10/14/18 [History] Metoprolol Tartrate [Lopressor] 25 mg PO BID@0600,1800 #60 tab 10/16/18 [Rx] Follow up Appointment(s)/Referral(s): Tor Kay MD [STAFF PHYSICIAN] - As Needed (Follow up in office with Dr. Downing for heart catheterization. Then you will have future appointment made with Dr. Kay to discuss possible ablation option.) Peter Downing MD [STAFF PHYSICIAN] - 10/22/18 3:45 pm (Appointment moved up from November 04.) None,Stated [Primary Care Provider] - 3 Days (Please call your insurance card to find primary care physician in your area. ) Patient Instructions/Handouts: *Surgery [facility] - After Heart Catheterization - Molder Apprentice Instructions, Supraventricular Tachycardia (DC), Cardiac Ablation (DC) Discharge Disposition: HOME SELF-CARE
--- NOTE | 2018-10-23 08:06 | CDI ---
Documentation Clarification Form Date:10/23/18 From: Santana Donnelly Phone: call to [phone] Admit Date: 10/14/2018 9:12:00 AM Patient Name: Vielka Murrell Visit Number: [id number] Discharge Date: 10/16/2018 4:25:00 PM ATTENTION: The Clinical Documentation Specialists (CDI) and [facility] Coding Staff appreciate your assistance in clarifying documentation. Please respond to the clarification below the line at the bottom and electronically sign. The CDI & [facility] Coding staff will review the response and follow-up if needed. Please note: Queries are made part of the Legal Health Record. If you have any questions, please contact the author of this message via ITS. Dr. Sharon Blanchard Event noted asventricular tachycardia versus SVT was documented in the Progress notes and in Discharge summary stated as abnormal event with history of palpitations. History/Risk factors:Palpitations EKG/telemetry: Event monitor shows ventricular tachycardia, wide complex tachycardia or SVT with abberancy Treatment: Metoprolol Consults: cardiology with cath procedure In your professional opinion, can you please clarify the type of Arrhythmia, if known? Paroxysmal ventricular tachycardia Supraventricular tachycardia Ventricular tachycardia Other, please specify Unable to determine sustained v tach MTDD
== END 2018-10-16 16:25 | disposition home or self-care (01) | DRG 287 ==
LOC: EC 07:03 → 3SCARD 09:12
PROVIDERS: ADMIT Family Medicine; ATTEND Family Medicine
PROC: 4A023N7 Measurement of Cardiac Sampling and Pressure, Left Heart, Percutaneous Approach (ICD-10-PCS; principal; 2018-10-14 11:14)
PROC: B2161ZZ Fluoroscopy of Right and Left Heart using Low Osmolar Contrast (ICD-10-PCS; principal; 2018-10-14 11:14)
DX: I47.2 Ventricular tachycardia (principal); F41.9 Anxiety disorder, unspecified; R74.0 Nonspecific elevation of levels of transaminase and lactic acid dehydrogenase [LDH]; Z90.89 Acquired absence of other organs; Z82.49 Family history of ischemic heart disease and other diseases of the circulatory system; Z86.79 Personal history of other diseases of the circulatory system; Z82.3 Family history of stroke; Z98.890 Other specified postprocedural states
CPT/HCPCS: 36415; 71046; 80053; 80061; 83735; 84439; 84443; 84484; 85025; 85610; 85730; 93005; 93017; 93458; 99285

== ENCOUNTER 2018-10-29 20:21 | Emergency (ER) | payer BC ==
[2018-10-29 20:30] VITALS: RESP 18
[2018-10-29] MEDS ORDERED: SODIUM CHLORIDE 0.9% 1,000 ML IV STA (20:36)
--- NOTE | 2018-10-29 21:13 | ED ---
Arrhythmia/Palpitations HPI - General Chief Complaint: Arrhythmia/Palpitations Stated Complaint: Fast Heart Beat Time Seen by Provider: 10/29/18 20:35 Source: patient, RN notes reviewed Mode of arrival: wheelchair Limitations: no limitations - History of Present Illness Initial Comments: This is a 53-year-old female who presents with complaints of elevated heart rate today. She states she was at rest normally her resting heart rate is 57-61 she noticed that was in the mid 70s today. She is on metoprolol 25 mg twice a day she started last about 2 weeks ago. She has had a cardiac cath recently which was negative apparently she had a monitor on about 2 weeks ago which demonstrated V. tach. He denies any fevers chills nausea vomiting sweats or o ther symptoms at this time. Monitoring that is currently demonstrates a different room from what she had earlier. MD Complaint: rapid heart beat - Related Data Home Medications Medication Instructions Recorded Confirmed Cholecalciferol [Vitamin D3 (25 3,000 unit PO DAILY 10/14/18 10/29/18 Mcg = 1000 Iu)] Previous Rx's Medication Instructions Recorded Metoprolol Tartrate [Lopressor] 25 mg PO BID@0600,1800 #60 tab 10/16/18 Magnesium Oxide [Mag-Oxide] 200 mg PO DAILY #10 tablet 10/29/18 Potassium Citrate [Potassium 10 meq PO DAILY #10 tablet.er 10/29/18 Citrate ER] Allergies Allergy/AdvReac Type Severity Reaction Status Date / Time No Known Allergies Allergy Verified 10/29/18 21:09 Review of Systems ROS Statement: Those systems with pertinent positive or pertinent negative responses have been documented in the HPI. ROS Other: All systems not noted in ROS Statement are negative. Past Medical History Past Medical History: No Reported History, Atrial Fibrillation Additional Past Medical History / Comment(s): 2 years ago (2016) pt states she had chest fluttering and had cardiac workup-nothing found, lately L bicep pain up into shoulder-worse with certain positions, stress incontinence., VTACH, History of Any Multi-Drug Resistant Organisms: None Reported Past Surgical History: Tonsillectomy Additional Past Surgical History / Comment(s): laprascopic surgery for endometriosis, Past Anesthesia/Blood Transfusion Reactions: No Reported Reaction Past Psychological History: No Psychological Hx Reported Smoking Status: Never smoker Past Alcohol Use History: None Reported Past Drug Use History: None Reported - Past Family History Mother Family Medical History: Coronary Artery Disease (CAD) Additional Family Medical History / Comment(s): Mother had 2 vessel CABG at the age of 63 yrs. She also had PCI/stent at the age of 76yrs. Pt's maternal aunt had CABG and her 2 maternal uncles had CVA and HTN elevated cholesterol. Father History Unknown: Yes Additional Family Medical History / Comment(s): Father in a plane accident. General Exam - General Exam Comments Initial Comments: This is a well-developed well-nourished awake alert oriented 3 female Limitations: no limitations General appearance: alert, anxious Head exam: Present: atraumatic, normocephalic, normal inspection Eye exam: Present: normal appearance, PERRL, EOMI. Absent: scleral icterus, conjunctival injection, periorbital swelling ENT exam: Present: normal exam, mucous membranes moist Neck exam: Present: normal inspection, full ROM, other (No stridor JVD or bruits). Absent: tenderness, meningismus, lymphadenopathy Respiratory exam: Present: normal lung sounds bilaterally. Absent: respiratory distress, wheezes, rales, rhonchi, stridor Cardiovascular Exam: Present: normal rhythm, tachycardia, normal heart sounds. Absent: systolic murmur, diastolic murmur, rubs, gallop, clicks GI/Abdominal exam: Present: soft, normal bowel sounds. Absent: distended, tenderness, guarding, rebound, rigid Extremities exam: Present: normal inspection, full ROM, normal capillary refill. Absent: tenderness, pedal edema, joint swelling, calf tenderness Back exam: Present: normal inspection Neurological exam: Present: alert, oriented X3, CN II-XII intact Psychiatric exam: Present: normal affect, normal mood Skin exam: Present: warm, dry, intact, normal color. 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 ] Respiratory 18 Rate Blood Pressure 152/90 O2 Sat by Pulse 100 Oximetry EKG Findings - EKG Results: EKG: interpreted by JUWAN SWAIN (Sinus tachycardia with a rate of 107 KS interval 1:30 QRS duration 90 QT since QTC 3:30/440 poor R-wave progression no acute ST-T wave changes) Medical Decision Making - Medical Decision Making I did reevaluate patient several occasions heart rates come down within normal limits after IV fluids lab work except for glucose was within normal limits [facility] the potassium and magnesium were at the lower ends of normal patient will be discharged with follow-up with Dr. Kay as planned. She is instructed to increase oral fluids she'll also be given supplementation to improve her potassium and magnesium profiles. - Lab Data Result diagrams: 10/29/18 21:00 10/29/18 21:00 Lab Results 10/29/18 10/29/18 10/29/18 Range/Units 21:00 21:00 21:00 WBC 5.0 (3.8-10.6) k/uL RBC 4.46 (3.80-5.40) m/uL Hgb 13.1 (11.4-16.0) gm/dL Hct 38.4 (34.0-46.0) % MCV 86.0 (80.0-100.0) fL MCH 29.3 (25.0-35.0) pg MCHC 34.1 (31.0-37.0) g/dL RDW 13.5 (11.5-15.5) % Plt Count 142 L (150-450) k/uL Neutrophils % 61 % Lymphocytes % 29 % Monocytes % 5 % Eosinophils % 2 % Basophils % 0 % Neutrophils # 3.1 (1.3-7.7) k/uL Lymphocytes # 1.5 (1.0-4.8) k/uL Monocytes # 0.2 (0-1.0) k/uL Eosinophils # 0.1 (0-0.7) k/uL Basophils # 0.0 (0-0.2) k/uL PT 10.2 (9.0-12.0) sec INR 0.9 (<1.2) APTT 22.8 (22.0-30.0) sec D-Dimer 0.20 (<0.60) mg/L FEU Sodium 142 (137-145) mmol/L Potassium 3.6 (3.5-5.1) mmol/L Chloride 105 (98-107) mmol/L Carbon Dioxide 29 (22-30) mmol/L Anion Gap 8 mmol/L BUN 21 H (7-17) mg/dL Creatinine 0.67 (0.52-1.04) mg/dL Est GFR (CKD-EPI)AfAm >90 (>60 ml/min/1.73 sqM) Est GFR (CKD-EPI)NonAf >90 (>60 ml/min/1.73 sqM) Glucose 140 H (74-99) mg/dL Calcium 10.3 H (8.4-10.2) mg/dL Magnesium 1.9 (1.6-2.3) mg/dL Total Bilirubin 0.3 (0.2-1.3) mg/dL AST 27 (14-36) U/L ALT 27 (9-52) U/L Alkaline Phosphatase 74 (38-126) U/L Creatine Kinase 47 (30-135) U/L Troponin I (0.000-0.034) ng/mL Total Protein 7.3 (6.3-8.2) g/dL Albumin 4.6 (3.5-5.0) g/dL TSH 3.770 (0.465-4.680) mIU/L 10/29/18 Range/Units 21:00 WBC (3.8-10.6) k/uL RBC (3.80-5.40) m/uL Hgb (11.4-16.0) gm/dL Hct (34.0-46.0) % MCV (80.0-100.0) fL MCH (25.0-35.0) pg MCHC (31.0-37.0) g/dL RDW (11.5-15.5) % Plt Count (150-450) k/uL Neutrophils % % Lymphocytes % % Monocytes % % Eosinophils % % Basophils % % Neutrophils # (1.3-7.7) k/uL Lymphocytes # (1.0-4.8) k/uL Monocytes # (0-1.0) k/uL Eosinophils # (0-0.7) k/uL Basophils # (0-0.2) k/uL PT (9.0-12.0) sec INR (<1.2) APTT (22.0-30.0) sec D-Dimer (<0.60) mg/L FEU Sodium (137-145) mmol/L Potassium (3.5-5.1) mmol/L Chloride (98-107) mmol/L Carbon Dioxide (22-30) mmol/L Anion Gap mmol/L BUN (7-17) mg/dL Creatinine (0.52-1.04) mg/dL Est GFR (CKD-EPI)AfAm (>60 ml/min/1.73 sqM) Est GFR (CKD-EPI)NonAf (>60 ml/min/1.73 sqM) Glucose (74-99) mg/dL Calcium (8.4-10.2) mg/dL Magnesium (1.6-2.3) mg/dL Total Bilirubin (0.2-1.3) mg/dL AST (14-36) U/L ALT (9-52) U/L Alkaline Phosphatase (38-126) U/L Creatine Kinase (30-135) U/L Troponin I <0.012 (0.000-0.034) ng/mL Total Protein (6.3-8.2) g/dL Albumin (3.5-5.0) g/dL TSH (0.465-4.680) mIU/L - Radiology Data Radiology results: report reviewed, image reviewed Disposition Clinical Impression: Tachycardia, Palpitations, Dehydration Disposition: HOME SELF-CARE Condition: Good Instructions (If sedation given, give patient instructions): Heart Palpitations (ED), Dehydration (ED) Prescriptions: Magnesium Oxide [Mag-Oxide] 200 mg PO DAILY #10 tablet Potassium Citrate [Potassium Citrate ER] 10 meq PO DAILY #10 tablet.er Is patient prescribed a controlled substance at d/c from ED?: No Referrals: None,Stated [Primary Care Provider] - 1-2 days
[2018-10-29 21:23] LABS: ALT 27 U/L (9-52); AST 27 U/L (14-36); Albumin 4.6 g/dL (3.5-5.0); Alkaline Phosphatase 74 U/L (38-126); Anion Gap 8 mmol/L; Blood Urea Nitrogen 21 mg/dL (7-17); Calcium 10.3 mg/dL (8.4-10.2); Carbon Dioxide 29 mmol/L (22-30); Chloride 105 mmol/L (98-107); Creatine Kinase 47 U/L (30-135); Glucose 140 mg/dL (74-99); Magnesium 1.9 mg/dL (1.6-2.3); Potassium 3.6 mmol/L (3.5-5.1); Sodium 142 mmol/L (137-145); Total Bilirubin 0.3 mg/dL (0.2-1.3); Total Protein 7.3 g/dL (6.3-8.2)
[2018-10-29 21:25] LABS: Basophils % (A) 0 %; Eosinophils # (A) 0.1 k/uL (0-0.7); Eosinophils % (A) 2 %; HCT 38.4 % (34.0-46.0); HGB 13.1 gm/dL (11.4-16.0); Lymphocytes # (A) 1.5 k/uL (1.0-4.8); Lymphocytes % (A) 29 %; MCH 29.3 pg (25.0-35.0); MCHC 34.1 g/dL (31.0-37.0); Mean Platelet Volume 9.7; Monocytes # (A) 0.2 k/uL (0-1.0); Monocytes % (A) 5 %; Neutrophils # (A) 3.1 k/uL (1.3-7.7); Neutrophils % (A) 61 %; Platelet Count 142 k/uL (150-450); RBC 4.46 m/uL (3.80-5.40); RDW 13.5 % (11.5-15.5)
[2018-10-29 21:28] LABS: D-Dimer 0.2 mg/L FEU (<0.60); INR 0.9 (<1.2); Partial Thromboplastin Time 22.8 sec (22.0-30.0); Prothrombin Time 10.2 sec (9.0-12.0)
[2018-10-29] MEDS ORDERED: SODIUM CHLORIDE 0.9% 500 ML 500 ML IV STA (21:28)
--- NOTE | 2018-10-29 21:41 | XR ---
EXAMINATION TYPE: XR chest 2V DATE OF EXAM: 10/29/2018 COMPARISON: 10/14/2018 HISTORY: Chest pain. Dysrhythmia. TECHNIQUE: Frontal and lateral views of the chest are obtained. FINDINGS: Heart and mediastinum are normal. Lungs are clear. Diaphragm is normal. Bony thorax appear s normal. IMPRESSION: Normal chest. No change.
[2018-10-29 22:52] VITALS: BP 130/82; PULSE 78; TEMP 98.4
== END 2018-10-29 22:52 | disposition home or self-care (01) ==
LOC: EC 20:21
DX: E86.0 Dehydration (principal); R00.0 Tachycardia, unspecified; R00.2 Palpitations
CPT/HCPCS: 36415; 71046; 80053; 82550; 83735; 84443; 84484; 85025; 85379; 85610; 85730; 93005; 96360; 96361; 99285

== ENCOUNTER → 2018-11-25 | Outpatient (CLI) | payer BC ==
[2018-11-25 09:07] LABS: HCT 41.5 % (34.0-46.0); HGB 13.9 gm/dL (11.4-16.0); MCH 29.3 pg (25.0-35.0); MCHC 33.5 g/dL (31.0-37.0); MCV 87.5 fL (80.0-100.0); Mean Platelet Volume 9.2; Platelet Count 150 k/uL (150-450); RBC 4.74 m/uL (3.80-5.40); WBC 4.5 k/uL (3.8-10.6)
[2018-11-25 09:17] LABS: African American GFR (CKD) >90 (>60 ml/min/1.73 sqM); Anion Gap 7 mmol/L; Blood Urea Nitrogen 16 mg/dL (7-17); Carbon Dioxide 31 mmol/L (22-30); Chloride 105 mmol/L (98-107); Glucose 92 mg/dL (74-99); Potassium 4.1 mmol/L (3.5-5.1); Sodium 143 mmol/L (137-145)
== END | disposition home or self-care (01) ==
LOC: LABPAT 08:41
PROVIDERS: ATTEND Internal Medicine Clinical Cardiac Electrophysiology
DX: Z01.812 Encounter for preprocedural laboratory examination (principal); I47.2 Ventricular tachycardia
CPT/HCPCS: 80051; 82565; 82947; 84520; 85027

== ENCOUNTER 2018-12-03 08:39 | Day surgery (SDC) | payer BC ==
[2018-11-28 10:42] VITALS: BMI 24.1
[2018-12-03] MEDS: SODIUM CHLORIDE 0.9% 1,000 ML IV SCH (09:23)
[2018-12-03] MEDS ORDERED: ISOPROTERENOL 250 MCG/1.25 ML SYR IV ONE (12:12)
[2018-12-03] MEDS ORDERED: PROPOFOL 10 MG/ML 20 ML VIAL IV ONE (12:12)
[2018-12-03] MEDS ORDERED: PHENYLEPHRINE-0.9% NACL SYG 1 MG/10 ML SYRINGE ONE (12:12)
[2018-12-03] MEDS ORDERED: MIDAZOLAM 2 MG/2 ML VIAL ONE (12:12)
[2018-12-03] MEDS ORDERED: METOPROLOL TARTRATE 5 MG/5 ML VIAL IVP ONE ×2 (12:12→15:06)
[2018-12-03] MEDS ORDERED: fentaNYL (PF) 50 MCG/ML 2 ML AMP ONE (12:12)
[2018-12-03] MEDS ORDERED: LIDOCAINE 1% INJ 10MG/ML (20 ML MDV) ONE ×2 (12:28→16:05)
[2018-12-03] MEDS ORDERED: LIDOCAINE 1% INJ 10MG/ML (20 ML MDV) SQ ONE ×2 (12:45→16:11)
[2018-12-03] MEDS ORDERED: HYDROcodone/APAP 5-325MG 1 EACH TAB PO PRN (15:37)
[2018-12-03] MEDS ORDERED: ACETAMINOPHEN TAB 325 MG TAB PO PRN (15:37)
[2018-12-03] MEDS ORDERED: ACETAMINOPHEN IV (For NPO) 1,000 MG in EMPTY BAG 1 BAG IVPB ONE (15:37)
[2018-12-03] MEDS: ceFAZolin IN SWFI 2 GM/20 ML SYRINGE IVP STA ×2 (16:02→16:07)
--- NOTE | 2018-12-03 16:38 | P.PCN ---
Preoperative Diagnosis: Loop monitor implant Primary physicians: Dr. Robins Publication Distributor: Dr. Schwartz Indication: Wide complex tachycardia was sleeping at night, EP study negative for any inducible VT. Right bundle branch block aberrancy noted with atrial pacing, atrial fibrillation induced Patient was brought to the EP lab in a fasting state. Written informed consent was obtained prior to the procedure. The left pectoral area was prepped and draped per protocol. Intravenous antibiotic was administered preoperatively. A subcutaneous Loop monitor was implanted successfully and the wound was closed per protocol. The device was programmed to detect significant monica- arrhythmic and tachy-arrhythmic events, per protocol. Device and programming details: Tachycardia and bradycardia detection programming Anesthesia was present during the procedure
[2018-12-04] MEDS: SODIUM CHLORIDE 0.9% 1,000 ML IV SCH (03:49)
[2018-12-04 04:10] VITALS: RESP 16
--- NOTE | 2018-12-04 07:01 | CE ---
CARDIAC ELECTROPHYSIOLOGY REPORT This is a 53-year-old female who has had wide-complex tachycardia while sleeping at night. This was documented on event monitoring. Prior to that, she had sinus rhythm/sinus bradycardia in the 50s. The wide-complex rhythm was only 1-lead was available for evaluation. She had a normal MRI and a normal stress test. The ventricular rate during the tachycardia was about 120 to 150 beats a minute. She was brought in for diagnostic EP study and possible loop implantation. The patient was brought to the EP lab in a fasting state. Written informed consent was obtained prior to the procedure. The right and left groins were prepped and draped as per protocol. Three venous sheaths were placed in the right femoral vein and one venous sheath in the left femoral vein. Via these, diagnostic catheters were placed in the right heart (high right atrium, His bundle, right ventricle and coronary sinus). Baseline measurements were as follows: Sinus cycle length 786 milliseconds, OK interval 123 milliseconds, QRS 99 milliseconds, QT interval 352 milliseconds. Baseline AH interval 58 milliseconds, HV 46 milliseconds. Sinus node recovery times at 600, 500 and 400 milliseconds were 1121, 1072, 1119 milliseconds. Corresponding corrected sinus node recovery times were within normal limits. No delta waves. AV node Wenckebach block 280 milliseconds. A suggestion of slow pathway noted at 320 milliseconds. VA Wenckebach block 400 milliseconds. AV node ERP 600/260 milliseconds. Atrial ERP from the high right atrium 600/200 milliseconds. AV node ERP from the coronary sinus 500/260 milliseconds. Burst stimulation in the coronary sinus revealed an intermittent right bundle branch block aberrancy. Retrograde conduction was midline and decremental. Ventricular extra stimulation from the RV apex at [address] trains up to double extra stimuli did not induce any ventricular tachycardia. Burst stimulation from the right ventricular apex from 500 down to 180 milliseconds did not induce any ventricular tachycardia. The catheter was then moved to the RV septum and burst stimulation was performed from 400 milliseconds down to 190 milliseconds. No arrhythmias induced. Extra stimulation was performed at 2 drive trains up to double extra stimuli without induction of any arrhythmias. High-dose Isuprel was used. Straight pacing was performed and atrial fibrillation was induced. Since that did not terminate after stopping Isuprel, electrical cardioversion had to be performed. Following that, a burst stimulation was performed from the RV septum. Ventricular extra stimulation up to triple extrastimuli at [address] trains performed. Burst stimulation, extra stimulation performed during atrial fibrillation as well as the sinus rhythm. Isuprel was then once again started in sinus rhythm and burst stimulation was performed. Ventricular extra stimulation up to double extra stimuli was performed. Long short sequences were performed. No VT was induced. Isuprel was stopped. Ventricular stimulation was continued but no arrhythmias induced during the recovery phase from Isuprel. IV metoprolol was used to slow down the heart rate. Boluses of Emmanuel-Synephrine were given to induce a vagal effect to induce sinus bradycardia. Ventricular stimulation was performed. No arrhythmias were induced. At the end of the procedure, all catheters were removed and preparations were made for implantation of loop monitor. IMPRESSION: Diagnostic EP study performed for evaluation of wide-complex tachycardia that the patient experienced at night. Atrial fibrillation induced with atrial pacing, on Isuprel. Right bundle branch block aberrancy noted with atrial pacing. No ventricular arrhythmias either on or off Isuprel or following IV metoprolol use as well as following IV Emmanuel-Synephrine use to induce a vagal effect. Burst stimulation performed from multiple sites. Extra stimulation performed at multiple drive trains from 2 sites up to triple extrastimuli. No arrhythmias induced. PLAN: Loop monitor implantation and follow up thereafter. MMODL / IJN: [id number] /
--- NOTE | 2018-12-04 07:31 | LTR ---
December 03, 2018 Re: Vielka Murrell Dear Yamilex: I had the pleasure of seeing Vielka Murrell in electrophysiology followup. Vielka has an episode of sustained wide-complex tachycardia while sleeping at night. I performed a detailed EP study and I could not induce any ventricular tachycardia. She has previously had a normal echo, normal cardiac MRI and normal stress test. However, I was able to induce atrial fibrillation and I was also able to induce right bundle branch block aberrancy with atrial pacing. At this time, I recommended that she proceed with implantation of a loop monitor and we will follow her closely to see if this is an atrial tachycardia with aberrancy or ventricular tachycardia. Thank you for entrusting us in the care of your patient. Warm regards. Sincerely, MD MICHAEL Zazueta / BERNY: [id number] /
--- NOTE | 2018-12-04 07:51 | P.DS ---
Providers Attending physician: Tor Kay Primary care physician: [facility] Course: Patient is doing well. She is sitting comfortably in bed no chest discomfort dizziness lightheadedness. The loop implant site is sore Groins healing well minimal tenderness no hematoma on examination Heart sounds S1 and S2 normal no murmurs or gallops or rub Breath sounds are clear no rhonchi no crackles Abdomen soft Groins healing well Blood pressure 109/72 mmHg respirations normal 16, ulcerated in the 60s afebrile 97.8F Impression Episodes of wide complex tachycardia while sleeping Normal echo normal cardiac MRI normal coronary arteries EP study yesterday showed easily inducible atrial fibrillation With atrial pacing right bundle branch block aberrancy was noted No VT could be induced despite a very detailed study It is quite likely that the white complex tachycardia is apparent conduction response to an atrial tachycardia Status post implantation of loop monitor [place] Stop metoprolol Discharge home today Follow up in the office in 5 days for suture removal Follow-up with Dr. Schwartz in 2 weeks Follow-up with Dr. Sharp as needed depending upon any arrhythmia detection Plan - Discharge Summary Discharge Rx Participant: No New Discharge Prescriptions: Discontinued Metoprolol Tartrate [Lopressor] 12.5 mg PO DAILY No Action Cholecalciferol [Vitamin D3 (25 Mcg = 1000 Iu)] 3,000 unit PO DAILY Discharge Medication List Cholecalciferol [Vitamin D3 (25 Mcg = 1000 Iu)] 3,000 unit PO DAILY 10/14/18 [History] Follow up Appointment(s)/Referral(s): Peter Downing MD [STAFF PHYSICIAN] - 2 Weeks (Follow-up with Dr. Schwartz within 2 weeks Follow-up with Dr. Sharp in 4 months) Activity/Diet/Wound Care/Special Instructions: Post EP study - Ablation instructions 1. Keep access sites dry for 2 days. 2. No heavy lifting or straining for 2 days. 3. Avoid bending the hips repeatedly for 2 days. 4. You may go up and down stairs slowly Call if the following is noted 1. Bleeding, increasing swelling or pain at the access sites. 2. Increasing chest discomfort, especially upon taking a deep breath. 3. Increasing shortness of breath, at rest or with exertion. 4. Undue cough / phlegm 5. Difficulty or pain while swallowing. 6. Pain or change in color in the extremities. 7. Fever, chills, rigors. 8. Increasing headache or neurologic symptoms. 9. Dizziness, fainting, palpitations stop metoprolol
[2018-12-04 08:36] VITALS: BP 96/61; PULSE 63; TEMP 98.3
== END 2018-12-04 10:53 | disposition home or self-care (01) ==
LOC: CATHEP 08:39 → 1SOBS 16:34 → CATHEP 12-04 10:53
PROVIDERS: ATTEND Internal Medicine Clinical Cardiac Electrophysiology
DX: I47.2 Ventricular tachycardia (principal); Z79.899 Other long term (current) drug therapy; Z82.49 Family history of ischemic heart disease and other diseases of the circulatory system
CPT/HCPCS: 33285; 93620; 93623

== ENCOUNTER → 2019-02-11 | Outpatient (CLI) | payer BC ==
--- NOTE | 2019-02-11 15:00 | MM ---
Reason for exam: screening (asymptomatic). Last mammogram was performed 3 years and 2 months ago. History: Patient is postmenopausal. Took hormonal contraceptives for 14 years beginning at age 20. Physical Findings: A clinical breast exam by your physician is recommended on an annual basis and results should be correlated with mammographic findings. MG 3D Screening Mammo W/Cad Bilateral CC and MLO view(s) were taken. Prior study comparison: December 15, 2015, bilateral MG screening mammo w CAD. June 09, 2009, bilateral digital screening mammogram. The breast tissue is heterogeneously dense. This may lower the sensitivity of mammography. There are scattered benign-appering round bilateral breast calcificaltions. No discrete abnormality. ASSESSMENT: Negative, BI-RAD 1 RECOMMENDATION: Routine screening mammogram of both breasts in 1 year.
== END | disposition home or self-care (01) ==
LOC: RADMAMWWP 07:06
PROVIDERS: ATTEND Family Medicine
DX: Z12.31 Encounter for screening mammogram for malignant neoplasm of breast (principal)
CPT/HCPCS: 77063; 77067

== ENCOUNTER → 2019-02-20 | Outpatient (CLI) | payer BC ==
--- NOTE | 2019-02-20 23:17 | CONS ---
CONSULTATION DATE OF SERVICE: 02/20/2019 53-year-old lady who has been evaluated in the sleep center for episodes of documented ventricular tachycardia which happened during the sleep to rule out obstructive sleep apnea. HISTORY OF PRESENT ILLNESS/SLEEP WAKE EVALUATION: SLEEP SCHEDULE: Patient usual sleep schedule from 10 or 10:30 p.m. until 6 a.m. on working days and until 6:30 a.m. on weekends. FALLING ASLEEP: No problems with falling asleep, although she has TV set in bedroom. DURING SLEEP: She usually sleeps on the side position which sometimes may indicate possibility of a breathing problem on the back. She had episodes of palpitations. She wakes up from sleep up to 5 times. The patient is not sure what is the reason for that. No clear history of snoring. Usually no episodes of nocturia. DURING THE DAY/SLEEP WAKE EVALUATION: No history of number logical hallucinations, sleep paralysis or cataplexy. [place] Sleepiness Scale is 4. PAST MEDICAL HISTORY: Positive for episodes of cardiac arrhythmia. PAST SURGICAL HISTORY: Tonsillectomy, abdominal surgery for endometriosis in 1994, status post ET study and cardiac cath, LOOP monitor implanted, surgery for right status post surgical treatment of right shoulder problems. REVIEW OF SYSTEMS: Episodes of cardiac arrhythmia, menopause for about 1 year. Hot flashes. MEDICATIONS: Vitamin D3. FAMILY HISTORY: Hypertension, heart problems, hyperlipidemia, arthritis, skin cancer, thyroid problems. SOCIAL HISTORY: Negative for smoking or using alcohol during. PHYSICAL EXAM: lady without distress. BP 115/82, HR 66, RR 16, height 5 and 6, weight 158, body mass index 25.5, temperature 98.2, oxygen saturation at room air 99%. HEENT: Oropharynx extremely low position of soft palate. Mallampati 4. Restriction of nasal breathing. Retrognathia 3 mm. Neck is 13 inches in circumference. Supple, no JVD. Thyroid is not palpable. LUNGS Clear to percussion and to auscultation. Good air exchange. No wheezing or rhonchi. HEART S1, S2 regular. No murmurs, gallops, or rubs. ABDOMEN Soft and nontender. Bowel sounds are present. No organomegaly appreciated. EXTREMITIES No clubbing or cyanosis. TAILINGS MAN Awake, alert, and oriented X3. Cranial nerves 2 to 7 intact. There is no fasciculation or atrophy. noted. No focal deficits observed. IMPRESSION: 1. Multiple awakenings from sleep up to 5 times. 2. Extremely low position of soft palate. Mallampati 4. Restriction of nasal breathing. Retrognathia 3-4 mm, obstructive sleep apnea-hypopnea syndrome. 3. History of episodes of ventricular tachycardia documented during the sleep. 4. Status post tonsillectomy. 5. Menopause for 1 year with hot flashes. 6. Status post abdominal surgery for endometriosis in 1989. 7. Status post loop monitor implanted in November of 2018. 8. Status post right shoulder surgery in August of 2018. PLAN: 1. Polysomnography for evaluation of patient's breathing during sleep. 2. CPAP/BiPAP titration if sleep study confirms obstructive sleep apnea-hypopnea syndrome. 3. Preferable position during sleep on the side. 4. No driving if patient feels any sleepiness. 5. I will see patient for follow up visit to explain results of testing and following plan. Thank you very much for referring this patient for consultation. Sincerely, Nelson Delatorre MD, PhD, FAASM Diplomat of [employer] [employer] [employer] Home Care Liaison of [facility] [place] MMODL / IJN: [id number] /
--- NOTE | 2019-02-20 23:33 | CONS ---
CONSULTATION ADDENDUM TO CONSULTATION: The patient came to the sleep center also because of history of PAF with RVR. MMODL / IJN: [id number] /
== END ==
LOC: SLEEP 15:54
PROVIDERS: ATTEND Internal Medicine
DX: G47.33 Obstructive sleep apnea (adult) (pediatric) (principal); N95.1 Menopausal and female climacteric states; Z90.89 Acquired absence of other organs; Z98.890 Other specified postprocedural states; Z79.899 Other long term (current) drug therapy
CPT/HCPCS: 99211

== ENCOUNTER 2019-03-10 07:34 | Day surgery (SDC) | payer BC ==
[~2019-03-10 07:34] MED LIST: LACTATED RINGERS 1,000 ML IV SCH; LIDOCAINE 1% 20 ML VIAL (10MG/ML) FOR IV START INTRADERMA PRN
[2019-03-10 07:52] VITALS: RESP 16; TEMP 98.4
[2019-03-10] MEDS ORDERED: LIDOCAINE 1% INJ 10MG/ML (20 ML MDV) ONE (08:08)
[2019-03-10] MEDS ORDERED: PROPOFOL 10 MG/ML 20 ML VIAL IV ONE (08:08)
--- NOTE | 2019-03-10 08:37 | P.PCN ---
Date of Procedure: 03/10/19 Description of Procedure: BRIEF HISTORY: Patient is a 53-year-old pleasant female scheduled for an elective colonoscopy as a part of screening for malignant neoplasm in the colon. No prior colonoscopies reported. No family history of colon cancer. Denies any change in bowel habits, abdominal pain or blood per rectum. PROCEDURE PERFORMED: Colonoscopy. PREOPERATIVE DIAGNOSIS: Screening for malignant neoplasm of the colon, no prior colonoscopy reported. ESTIMATED BLOOD LOSS: Minimal. IV sedation per Anesthesia. PROCEDURE: After informed consent was obtained, the patient, was brought into the endoscopy unit. IV sedation was administered by Anesthesia under continuous monitoring. Digital rectal examination was normal. Initially the Olympus CF-190 flexible video colonoscope was then inserted in the rectum, gradually advanced into the cecum without any difficulty. Careful examination was performed as the scope was gradually being withdrawn. Ileocecal valve and the appendiceal orifice were visualized and appeared normal. Prep was excellent. Mucosa of the cecum, ascending colon, transverse colon, descending colon, sigmoid colon, and rectum appeared normal. A few small mouth diverticula noted in the sigmoid. Retroflexion was performed in the rectum and no lesions were seen. The patient tolerated the procedure well. IMPRESSION: Normal-appearing colon from rectum to cecum, and normal-appearing terminal ileum. Mild sigmoid diverticulosis. RECOMMENDATIONS: Findings of this examination were discussed with the patient and her . Okay to resume medications. Recommendation is for high-fiber diet. Recommend repeat colonoscopy in 10 years for screening, or sooner if signs or symptoms which warrant further evaluation develop.
[2019-03-10 08:56] VITALS: BP 115/75; PULSE 60
== END 2019-03-10 09:23 | disposition home or self-care (01) ==
LOC: ORWHC2ENDO 07:34
PROVIDERS: ATTEND Internal Medicine
DX: Z12.11 Encounter for screening for malignant neoplasm of colon (principal); K57.30 Diverticulosis of large intestine without perforation or abscess without bleeding; M75.01 Adhesive capsulitis of right shoulder; Z86.79 Personal history of other diseases of the circulatory system
CPT/HCPCS: J2001; J2704; G0121

== ENCOUNTER → 2019-04-10 | Outpatient (CLI) | payer BC ==
--- NOTE | 2019-04-10 12:10 | SFUN ---
SLEEP CENTER FOLLOW UP NOTE DATE OF SERVICE: 04/10/2019 This 53-year-old lady had been followed in sleep center to discuss results of sleep study and following plan. I discussed the results of sleep study with patient in details. Sleep study showed decreased sleep efficiency, but no any significant abnormalities of respiration during the sleep and absolutely normal oxygenation during the sleep. Lowest oxygen level was 93.1% and total apnea-hypopnea index was 0.4, which was related only to 2 hypopneas documented for the whole night of the sleep study. [place] Sleepiness Scale today is 2. MEDICATIONS: Vitamin D3. PHYSICAL EXAMINATION: During physical exam, patient in no distress. VITAL SIGNS: BP 120/71, HR 75, RR 16, weight 156.2 pounds, temperature 98.3, oxygen saturation at room air 99%. HEENT: Oropharynx low position of soft palate. Mallampati 4. NECK: Supple, no JVD. Thyroid is not palpable. LUNGS: Clear to percussion and to auscultation. Good air exchange. No wheezing or rhonchi. HEART: S1, S2 regular. No murmurs, gallops, or rubs. ABDOMEN: Soft and nontender. Bowel sounds are present. No organomegaly appreciated. EXTREMITIES: No clubbing or cyanosis. OIL EXPLORATION ENGINEER: Awake, alert, and oriented X3. Cranial nerves 2 to 7 intact. There is no fasciculation or atrophy. noted. No focal deficits observed. IMPRESSION: 1. No significant respiratory abnormalities have been documented during the sleep study. Normal oxygenation during the sleep. 2. History of episodes of cardiac arrhythmia with ventricular tachycardia. 3. Status post tonsillectomy. 4. Menopause. 5. Status post abdominal surgery for endometriosis. 6. Status post right shoulder surgery in August of 2018. PLAN: 1. Sleep hygiene with regular time in bed for 7-1/2 hours. 2. No driving if feeling any sleepiness. 3. Most probably abnormalities of sleep architecture documented during the sleep study with slightly low sleep efficiency could be addressed as a first night adaptation response. Physiologic techniques for treatment of any insomnia could be used during paradoxical intention, worry time, no watching clock at night necessary. Thank you very much for allowing me to participate in management of your patient. Sincerely, Nelson Delatorre MD, PhD, FAASM Diplomat of [employer] [employer] [employer] [facility] [place] MMODL / IRAMN: [id number] /
== END | disposition home or self-care (01) ==
LOC: SLEEP 10:47
PROVIDERS: ATTEND Internal Medicine
DX: Z09 Encounter for follow-up examination after completed treatment for conditions other than malignant neoplasm (principal); Z78.0 Asymptomatic menopausal state; Z98.890 Other specified postprocedural states; Z90.89 Acquired absence of other organs; Z79.899 Other long term (current) drug therapy

== ENCOUNTER → 2021-05-24 | Outpatient (CLI) | payer BC ==
[2021-05-24 14:49] LABS: HCT 40.1 % (37.2-46.3); HGB 12.9 g/dL (12.0-15.0); MCH 29.2 pg (27.0-32.0); MCHC 32.2 g/dL (32.0-37.0); MCV 90.7 fL (80.0-97.0); Mean Platelet Volume 12.3 fL (9.5-12.2); Platelet Count 146 X 10*3/uL (140-440); RBC 4.42 X 10*6/uL (4.10-5.20); RDW 12.7 % (11.5-14.5); WBC 3.55 X 10*3/uL (4.50-10.00)
[2021-05-24 16:16] LABS: ALT 22 U/L (8-44); AST 25 U/L (13-35); African American GFR (CKD) 118.1 (60.0-200.0); Albumin 4.8 g/dL (3.8-4.9); Alkaline Phosphatase 58 U/L (41-126); Blood Urea Nitrogen 12.9 mg/dL (9.0-27.0); Calcium 9.9 mg/dL (8.7-10.3); Carbon Dioxide 27.6 mmol/L (20.0-27.5); Chloride 104 mmol/L (96-109); Globulin 2.4 g/dL (1.6-3.3); Glucose 92 mg/dL (70-110); Magnesium 2.1 mg/dL (1.5-2.4); Non-African American GFR(CKD) 101.9 (60.0-200.0); Potassium 4.1 mmol/L (3.5-5.5); Sodium 142 mmol/L (135-145); Total Protein 7.2 g/dL (6.2-8.2)
[2021-05-24 16:40] LABS: Chol/HDL Ratio 2.38 Ratio
== END | disposition home or self-care (01) ==
LOC: LABWHC1 09:06
PROVIDERS: ATTEND Nurse Practitioner Adult Health
DX: I10 Essential (primary) hypertension (principal); E78.5 Hyperlipidemia, unspecified; E55.9 Vitamin D deficiency, unspecified; R00.0 Tachycardia, unspecified
CPT/HCPCS: 36415; 80053; 80061; 82306; 83721; 83735; 84443; 85027

== ENCOUNTER → 2021-08-11 | Outpatient (CLI) | payer BC ==
--- NOTE | 2021-08-12 13:37 | MM ---
Reason for exam: screening (asymptomatic). Last mammogram was performed 2 years and 6 months ago. History: Patient is postmenopausal. Took hormonal contraceptives for 14 years beginning at age 20. Physical Findings: A clinical breast exam by your physician is recommended on an annual basis and results should be correlated with mammographic findings. MG 3D Screening Mammo W/Cad Bilateral CC and MLO view(s) were taken. Prior study comparison: February 11, 2019, bilateral MG 3d screening mammo w/cad. December 15, 2015, bilateral MG screening mammo w CAD. The breast tissue is heterogeneously dense. This may lower the sensitivity of mammography. Benign oil cyst calcifications on the right breast. No significant changes when compared with prior studies. ASSESSMENT: Benign, BI-RAD 2 RECOMMENDATION: Routine screening mammogram of both breasts in 1 year. Patient should continue monthly self breast exams. A negative report should not preclude additional follow up of suspicious palpable abnormalities.
== END | disposition home or self-care (01) ==
LOC: RADMAMWWP 06:59
PROVIDERS: ATTEND Family Medicine
DX: Z12.31 Encounter for screening mammogram for malignant neoplasm of breast (principal); Z78.0 Asymptomatic menopausal state
CPT/HCPCS: 77063; 77067

== ENCOUNTER → 2021-10-27 | Outpatient (CLI) | payer BC ==
--- NOTE | 2021-10-27 20:59 | US ---
EXAMINATION TYPE: US extremity nonvasc complete LT, plantar foot DATE OF EXAM: 10/27/2021 COMPARISON: NONE CLINICAL HISTORY: 56-year-old female M72.2 PLANTAR FASCIAL FIBROMATOSIS LT FOOT. Palpable bottom of l eft foot x few months Technique: Targeted scanning along the plantar fascia and particular attention along the plantar arch at the patient's visibly palpable site. FINDINGS: There is an oval, circumscribed hypoechoic, nonvascular lesion along the medial plantar midfoot. This is located superficial and appears associated with the medial band of the plantar fascia. It measure s 1.0 x 0.3 x 0.7cm. IMPRESSION: Findings suggest a 10 x 7 x 3 mm fibroma of the plantar fascia along the palpable site. Reimage if an y progressive enlargement is encountered.
== END | disposition home or self-care (01) ==
LOC: RADUSWWP 14:48
PROVIDERS: ATTEND Podiatrist Foot & Ankle Surgery
DX: M72.2 Plantar fascial fibromatosis (principal)

== ENCOUNTER → 2024-01-25 | Outpatient (CLI) | payer BC | END | disposition home or self-care (01) | LOC: LABPRL 20:00 | PROVIDERS: ATTEND Internal Medicine Clinical Cardiac Electrophysiology | CPT/HCPCS: 80053; 80061; 83036; 84443; 85027 ==